=== PATIENT | male | born 1995 | race Caucasian/White ===

== ENCOUNTER 2017-08-08 21:47 | Emergency (ER) | payer OTHER ==
--- NOTE | 2017-08-08 21:55 | ER Report ---
History and Physical Time Seen By MD: 21:53 HPI/ROS CHIEF COMPLAINT: Difficulty swallowing HISTORY OF PRESENT ILLNESS: 22-year-old male who was eating chicken. He aspirated and choked. He thinks he has a large piece of chicken washing his esophagus. He is unable to swallow his secretions. This occurred around 8 PM. He's waited several hours and try to drink a large glass of water and it only regurgitated back up. Patient has history of esophagitis noted on a endoscope performed back in May of last year. Scope was ordered after he was seeing ENT in consultation. There was notable esophagitis noted. Patient was placed on medication, has had no symptoms with heartburn since that time. REVIEW OF SYSTEMS: Respiratory: No cough, no dyspnea. Cardiovascular: No chest pain, no palpitations. Gastrointestinal: No vomiting, no abdominal pain. Musculoskeletal: No back pain. Allergies: Coded Allergies: No Known Drug Allergies (Unverified , 08/08/17) Home Meds Active Scripts Pantoprazole Sodium (PROTONIX) 40 Mg Tablet.dr, 40 MG PO QDAY, #30 TAB.SR 3 Refills Prov:DUANE HART MD 08/08/17 Reviewed Nurses Notes: Yes Old Medical Records Reviewed: Yes Constitutional Vital Sign - Last 24 Hours 08/08/17 08/08/17 08/08/17 08/08/17 21:53 21:54 21:56 21:57 Temp 98.7 Pulse 69 86 Resp 18 B/P (MAP) 149/101 149/101 (117) 146/79 (101) Pulse Ox 95 94 O2 Delivery Room Air 08/08/17 08/08/17 08/08/17 08/08/17 22:00 22:02 22:07 22:12 Pulse 78 ??? 93 B/P (MAP) 119/93 (102) Pulse Ox 95 95 96 08/08/17 08/08/17 08/08/17 08/08/17 22:17 22:22 22:27 22:30 Pulse 76 77 82 B/P (MAP) 138/85 (102) Pulse Ox 95 95 96 08/08/17 08/08/17 08/08/17 08/08/17 22:32 22:42 22:52 22:57 Pulse 74 80 76 78 Pulse Ox 94 94 96 95 08/08/17 08/08/17 23:02 23:42 Pulse 77 Resp 20 B/P (MAP) 120/96 (104) Pulse Ox 96 94 Physical Exam General Appearance: The patient is alert, has no immediate need for airway protection and no current signs of toxicity.. Vital signs stable, afebrile, pulse ox normal. Patient's spitting his secretions into an emesis bag HEENT: Pupils equal and round no injection. TMs normal, oropharynx without redness, foreign body or exudate, mucous membranes are moist., Palpation of the anterior neck reveals no foreign body Respiratory: Chest is non tender, lungs are clear to auscultation. No wheezing or rails Cardiac: regular rate and rhythm Gastrointestinal: Abdomen is soft and non tender, no masses, bowel sounds normal. Musculoskeletal: Neck: Neck is supple and non tender. Extremities have full range of motion and are non tender. Skin: No rashes or lesions. DIFFERENTIAL DIAGNOSIS: After history and physical exam differential diagnosis was considered for esophageal foreign body, esophageal obstruction Medical Decision Making ED Course/Re-evaluation Clinical Indication for ER IV: Hydration, IV Access ED Course Patient was admitted to an examination room. H&P was done. The differential diagnoses was considered. On clinical examination, patient appears to have esophageal protection. Unable to swallow his secretions. Patient tried to drink soda at home was unsuccessful. He says a peripheral IV established here. He is given glucagon 1 mg IV. After observation a 45 minutes. He is unimproved. General surgery was consulted as noted below. He was on his way to the OR when it spontaneously passed. He was discharged home with prescription upper tonics written by Dr. Hart 08/08/2017 10:38:40 pm case discussed with Dr. Hart general surgery on- call, who will come evaluate the patient for endoscopy Decision to Disposition Date: Aug 08, 2017 Decision to Disposition Time: 22:03 Depart Departure Latest Vital Signs Vital Signs Date Time Temp Pulse Resp B/P (MAP) Pulse Ox O2 Delivery O2 Flow Rate FiO2 08/08/17 23:42 77 20 120/96 (104) 94 08/08/17 21:53 98.7 Room Air Impression: Primary Impression: Esophageal foreign body Condition: Improved Disposition: ADMIT FROM ER TO OR New Scripts Pantoprazole Sodium (PROTONIX) 40 Mg Tablet. 40 MG PO QDAY, #30 TAB.SR 3 Refills Prov: DUANE HART MD 08/08/17 Problem Qualifiers Primary Impression: Esophageal foreign body Encounter type: initial encounter Qualified Codes: T18.108A - Unspecified foreign body in esophagus causing other injury, initial encounter BRAD AMBROSE DO Aug 08, 2017 21:55
[2017-08-08] MEDS ORDERED: NORMOSOL R SOLN(*) 1000 ML BAG 1,000 ML IV PRN (22:05)
[2017-08-08] MEDS ORDERED: GLUCAGON 1 MG KIT IVP ONE (22:05)
--- NOTE | 2017-08-08 23:01 | General Surgery 1 H&P ---
History of Present Illness Chief Complaint cant swallow History of Present Illness 22 yo male with history of dysphagia since age 6. he was eating chicken tonight when it stuck retrosternally. he now cant swallow. this has happened in the past. egd revealed esophagitis. History Other Past Surgeries: shoulder and egd Home Meds No Active Prescriptions or Reported Meds Allergies: Coded Allergies: No Known Drug Allergies (Unverified , 08/08/17) Review of Systems All Systems Reviewed/Normal: Yes Exam Vital Signs Date Time Temp Pulse Resp B/P (MAP) Pulse Ox O2 Delivery O2 Flow Rate FiO2 08/08/17 22:32 74 94 08/08/17 22:30 138/85 (102) 08/08/17 21:53 98.7 18 Room Air General Appearance: Alert, Awake, No Acute Distress Cardiovascular: Regular Rate and Rhythm Respiratory: Clear to Auscultation GI: Abd Soft and Non-Tender Assessment and Plan Problems: (1) Esophageal foreign body Status: Acute Assessment & Plan: egd and removal of foreign body and possible dilation. Copies to: DUANE ALEXANDER MD Venous Thromboembolism Antithrombotics Is Pt On Any Antithrombotics?: No Problem Qualifiers (1) Esophageal foreign body: Encounter type: initial encounter Qualified Codes: T18.108A - Unspecified foreign body in esophagus causing other injury, initial encounter DUANE ALEXANDER MD Aug 08, 2017 23:01
--- NOTE | 2017-08-08 23:02 | Post Operative Progress Note ---
DUANE ALEXANDER MD Aug 08, 2017 23:02
[2017-08-08] MEDS ORDERED: ONDANSETRON 4 MG/2 ML VIAL ONE (23:03)
[2017-08-08] MEDS ORDERED: PROPOFOL EMUL(*) 10MG/ML 20 ML 20 ML ONE (23:03)
[2017-08-08] MEDS ORDERED: SUCCINYLCHOL CHL 200MG/10ML VL ONE (23:03)
[2017-08-08] MEDS ORDERED: DEXAMETHASONE SOD PHOS 10MG/ML ONE (23:03)
[2017-08-08] MEDS ORDERED: LIDOCAINE MPF 1% 5 ML VIAL ONE (23:03)
[2017-08-08] MEDS ORDERED: fentaNYL CITR 100 MCG/2 ML AMP ONE (23:03)
[2017-08-08] MEDS ORDERED: PANT40TA63 PO (23:04)
--- NOTE | 2017-08-08 23:04 | Short(Outpt) Discharge Summary ---
Discharge Summary Reason for Hosp/Final Diag: (1) Esophageal foreign body Status: Acute Hospital Course & Plan: egd and removal of foreign body and possible dilation. just prior to anesthesia the pt felt the obstruction pass. he wants to go home. will discharge Departure Discharge to: Home Discharge Instructions Home Meds Active Scripts Pantoprazole Sodium (PROTONIX) 40 Mg Tablet.dr, 40 MG PO QDAY, #30 TAB.SR 3 Refills Prov:DUANE ALEXANDER MD 08/08/17 Diet: Regular Activity: As Tolerated Problem Qualifiers (1) Esophageal foreign body: Encounter type: initial encounter Qualified Codes: T18.108A - Unspecified foreign body in esophagus causing other injury, initial encounter DUANE ALEXANDER MD Aug 08, 2017 23:04
[2017-08-08 23:42] VITALS: BP 120/96
== END 2017-08-08 23:43 | disposition other institution (70) ==
LOC: ER 21:58 → OR 23:05 → ER 23:24
DX: T18.108A Unspecified foreign body in esophagus causing other injury, initial encounter (principal)
CPT/HCPCS: 96365; 99284; 99285; J0330; J1100; J1610; J2001; J2405; J2704; J3010